=== PATIENT | female | born 1995 | race Caucasian/White ===

== ENCOUNTER 2017-02-01 13:07 | Emergency (ER) | payer OTHER ==
[2017-02-01 14:41] LABS: BASOPHIL 0.2 % (0-2); EOSINOPHIL 0.2 % (0-5); HCT 33.7 % (37.0-47.0); HGB 11.2 g/dl (12.5-16.0); LYMPHOCYTE 28.6 % (15-48); MCH 25.5 pg (25.0-31.0); MCHC 33.2 g/dL (32.0-36.0); MCV 76.8 fL (78.0-100.0); MONOCYTE 7.9 % (0-12); MPV 9.2 fL (6.0-9.5); NEUTROPHIL 63.1 % (41-80); PLT 299 K/uL (150-400); RBC 4.39 M/uL (4.20-5.40); RDW 15.4 % (11.5-14.0)
== END 2017-02-01 15:15 | disposition home or self-care (01) ==
LOC: FER 13:07
PROVIDERS: Nurse Practitioner
DX: J10.1 Influenza due to other identified influenza virus with other respiratory manifestations (principal); J18.9 Pneumonia, unspecified organism; Z90.09 Acquired absence of other part of head and neck; Z79.51 Long term (current) use of inhaled steroids; Z79.52 Long term (current) use of systemic steroids
CPT/HCPCS: 36415; 71020; 85025; 87804; 87899; 99283

== ENCOUNTER 2020-12-26 18:09 | Emergency (ER) | payer OTHER ==
[~2020-12-26 18:09] MED LIST: BREO ELLIPTA 11 EACH INH; CLEOCIN300 MG PO; DUONEB 2.5-0.5M1 AMP INH; IBUPROFEN800 MG PO; KEFLEX500 MG PO; MEDROL 4MG DOSEP4 MG PO; TAMIFLU 75MG CA75 MG PO; VENTOLIN HFA IN18 GM INH; VIBRAMYCIN100 MG PO
[2020-12-26 19:07] LABS: BASOPHIL 0.5 % (0-2); EOSINOPHIL 5.7 % (0-5); HCT 37.9 % (37.0-47.0); HGB 12.5 g/dl (12.5-16.0); MCH 27.4 pg (25.0-31.0); MCV 82.9 fL (78.0-100.0); MONOCYTE 6.6 % (0-12); MPV 10.2 fL (6.0-9.5); NEUTROPHIL 54.9 % (41-80); NRBC 0; PLT 203 K/uL (150-400); RBC 4.57 M/uL (4.20-5.40); RDW 13.1 % (11.5-14.0); WBC 7.6 K/uL (4.0-10.5)
[2020-12-26 19:49] LABS: CORONAVIRUS 2019 SARS-COV-2 NEGATIVE (NEGATIVE); INFLUENZA A NAA NEGATIVE (NEGATIVE)
[2020-12-26 19:54] LABS: BUN/CREAT RATIO (CALC) 16.7 RATIO; CREATININE 0.66 mg/dL (0.51-0.95); POTASSIUM 3.4 mmol/L (3.5-5.1)
[2020-12-26] MEDS ORDERED: VENTOLIN (2.5 MG/3 M INH (20:16)
[2020-12-26] MEDS ORDERED: ZPAK PO (20:16)
[2020-12-26] MEDS ORDERED: MEDROL 4MG DOSEP4 MG PO (20:16)
[2020-12-26] MEDS ORDERED: DULERA 200 MCG8.8 GM INH (20:33)
== END 2020-12-26 20:35 | disposition home or self-care (01) ==
LOC: FER 18:09
PROVIDERS: Emergency Medicine
DX: B34.9 Viral infection, unspecified (principal); H65.93 Unspecified nonsuppurative otitis media, bilateral; F17.210 Nicotine dependence, cigarettes, uncomplicated; Z20.822 Contact with and (suspected) exposure to COVID-19
CPT/HCPCS: 36415; 71045; 80048; 85025; 94640; 94664; J2930; U0002

== ENCOUNTER 2021-03-29 09:22 | Emergency (ER) | payer OTHER ==
[~2021-03-29 09:22] MED LIST changes: +DULERA 200 MCG8.8 GM INH; +VENTOLIN (2.5 MG/3 M INH; +ZPAK PO
[2021-03-29] MEDS ORDERED: NAPROXEN500 MG PO (10:02)
== END 2021-03-29 10:15 | disposition home or self-care (01) ==
LOC: FER 09:22
DX: S86.212A Strain of muscle(s) and tendon(s) of anterior muscle group at lower leg level, left leg, initial encounter (principal); S86.211A Strain of muscle(s) and tendon(s) of anterior muscle group at lower leg level, right leg, initial encounter; F17.200 Nicotine dependence, unspecified, uncomplicated; Z88.2 Allergy status to sulfonamides; W54.1XXA Struck by dog, initial encounter; Y92.009 Unspecified place in unspecified non-institutional (private) residence as the place of occurrence of the external cause
CPT/HCPCS: 99283

== ENCOUNTER 2021-06-14 08:03 | Emergency (ER) | payer OTHER ==
[~2021-06-14 08:03] MED LIST changes: +NAPROXEN500 MG PO
[2021-06-14 08:55] LABS: BILIRUBIN NEGATIVE (NEGATIVE); BLOOD NEGATIVE Ery/uL (NEGATIVE); CLARITY CLEAR (CLEAR); COLOR YELLOW (YELLOW); GLUCOSE (U) NORMAL (NORMAL); LEUKOCYTES NEGATIVE Leu/uL (NEGATIVE); NITRITE NEGATIVE (NEGATIVE); PROTEIN NEGATIVE (NEGATIVE); UROBILINOGEN 0.2 mg/dL (0.2-1.0)
[2021-06-14 09:04] LABS: BASOPHIL 0.5 % (0-2); EOSINOPHIL 8.2 % (0-5); HCT 39.2 % (37.0-47.0); HGB 13.1 g/dl (12.5-16.0); LYMPHOCYTE 31.8 % (15-48); MCH 28.1 pg (25.0-31.0); MCHC 33.4 g/dL (32.0-36.0); MCV 83.9 fL (78.0-100.0); MONOCYTE 6.5 % (0-12); MPV 10.1 fL (6.0-9.5); NEUTROPHIL 52.5 % (41-80); NRBC 0; PLT 203 K/uL (150-400); RBC 4.67 M/uL (4.20-5.40); RDW 12.7 % (11.5-14.0); WBC 8.2 K/uL (4.0-10.5)
[2021-06-14 09:27] LABS: ALBUMIN 3.5 g/dL (3.4-5.0); BUN/CREAT RATIO (CALC) 14.5 RATIO; CREATININE 0.62 mg/dL (0.51-0.95); POTASSIUM 4.3 mmol/L (3.5-5.1); TOTAL PROTEIN 6.5 g/dL (6.4-8.2)
== END 2021-06-14 10:00 | disposition home or self-care (01) ==
LOC: FER 08:03
PROVIDERS: Internal Medicine
DX: M54.5 Low back pain (principal); Z88.2 Allergy status to sulfonamides
CPT/HCPCS: 36415; 80053; 81003; 84702; 85025; 99283

== ENCOUNTER 2021-06-29 13:04 | Emergency (ER) | payer OTHER ==
[2021-06-29 14:54] LABS: BILIRUBIN NEGATIVE (NEGATIVE); BLOOD NEGATIVE Ery/uL (NEGATIVE); CLARITY CLEAR (CLEAR); COLOR YELLOW (YELLOW); GLUCOSE (U) NORMAL (NORMAL); LEUKOCYTES NEGATIVE Leu/uL (NEGATIVE); NITRITE NEGATIVE (NEGATIVE); PROTEIN NEGATIVE (NEGATIVE); UROBILINOGEN 0.2 mg/dL (0.2-1.0); pH 5.5 (5.0-9.0)
[2021-07-02 05:07] LABS: CHLAMYDIA TRACHOMATIS, NAA Negative (Negative); NEISSERIA GONORRHOEAE, NAA Negative (Negative)
== END 2021-06-29 16:33 | disposition home or self-care (01) ==
LOC: FER 13:04
PROVIDERS: Physician Assistant
DX: M54.5 Low back pain (principal); F17.200 Nicotine dependence, unspecified, uncomplicated; Z87.09 Personal history of other diseases of the respiratory system; Z88.2 Allergy status to sulfonamides
CPT/HCPCS: 36415; 76830; 81003; 84702; 87210; 87491; 87591

== ENCOUNTER 2021-10-01 10:10 | Emergency (ER) | payer OTHER ==
[2021-10-01 11:11] LABS: BILIRUBIN NEGATIVE (NEGATIVE); BLOOD NEGATIVE Ery/uL (NEGATIVE); CLARITY CLEAR (CLEAR); COLOR YELLOW (YELLOW); GLUCOSE (U) NORMAL (NORMAL); LEUKOCYTES NEGATIVE Leu/uL (NEGATIVE); NITRITE NEGATIVE (NEGATIVE); PROTEIN NEGATIVE (NEGATIVE); SPECIFIC GRAVITY 1.025 (1.001-1.030); pH 6.5 (5.0-9.0)
[2021-10-03 06:10] LABS: CHLAMYDIA TRACHOMATIS, NAA Negative (Negative); NEISSERIA GONORRHOEAE, NAA Negative (Negative)
== END 2021-10-01 12:44 | disposition home or self-care (01) ==
LOC: FER 10:10
PROVIDERS: Emergency Medicine
DX: O26.892 Other specified pregnancy related conditions, second trimester (principal); N89.8 Other specified noninflammatory disorders of vagina; Z88.2 Allergy status to sulfonamides; Z3A.18 18 weeks gestation of pregnancy
CPT/HCPCS: 81003; 84112; 87210; 87491; 87591; 99283